=== PATIENT | male | born 1955 | race Caucasian/White ===

== ENCOUNTER 2016-03-24 07:49 | Outpatient (CLI) | payer OTHER ==
--- NOTE | 2016-03-24 15:48 | Diagnostic Imaging Report ---
[facility] [id number] [facility].[address] [id number] Report Submission Date: Mar 24, 2016 9:05:40 AM PRINCIPAL PROGRAMMER Patient Study Name: KRYS JORDAN Date: Mar 24, 2016 8:13:51 AM PRINCIPAL PROGRAMMER Modality Type: US Gender: M Description: ABDOMEN COMPLETE : 53 Institution: [facility] Physician [facility] OVALL[facility] - [place] Ultrasound of the abdomen complete CLINICAL HISTORY: Hyperglycemia. Night sweats. TECHNIQUE: Real-time sonography of the abdomen is performed in transverse and longitudinal views. FINDINGS: Gallbladder is normally distended. There is no evident gallstone or gallbladder wall thickening. A small amount of fluid is seen adjacent to the gallbladder fundus. There is additional hypoechoic collection adjacent to the gallbladder neck that may represent complex fluid. There is no evidence of internal blood flow within this area on color flow imaging. Common bile duct measures less than 3 mm in diameter. There is no intrahepatic ductal dilatation. Right kidney measures 10.9 cm in length and left kidney 10.8 cm in length. Renal cortical echogenicity is within normal limits and the cortical margins are smooth. Corticomedullary differentiation is preserved. Spleen is of normal size. There is a 5 mm hypoechoic area in the spleen consistent with small cyst. Visualized pancreas, aorta and inferior vena cava are within normal limits. IMPRESSION: Small amount of fluid adjacent to the gallbladder fossa and probable complex fluid collection adjacent to the gallbladder neck. Consider CT scan for better evaluation if indicated clinically. Small splenic cyst. Electronically signed on Mar 24, 2016 9:05:40 AM PRINCIPAL PROGRAMMER by: Sivakumar ULRICH
== END 2016-03-24 07:50 ==
LOC: RAD 07:49
PROVIDERS: ATTEND Family Medicine
DX: E11.9 Type 2 diabetes mellitus without complications (principal); R61 Generalized hyperhidrosis; R63.4 Abnormal weight loss
CPT/HCPCS: 76700